=== PATIENT | female | born 1960 | race Caucasian/White ===

== ENCOUNTER 2023-05-10 20:20 | Emergency (ER) | payer OTHER ==
[~2023-05-10] VITALS: Ht 154.9 cm; Wt 84.1 kg
[2023-05-10 21:34] LABS: Basophils # (auto) 0.1 10 ^3/uL (0-0.2); Basophils % (auto) 1.1 % (0.0-2.0); Eosinophils # (auto) 0.2 10 ^3/uL (0-0.8); Eosinophils % (auto) 2.9 % (0.0-7.0); Hematocrit 43.2 % (36.0-46.0); Hemoglobin 14.5 g/dL (12.2-16.2); Lymphocytes # (auto) 2.8 10 ^3/uL (0.4-5.4); Lymphocytes % (auto) 37.3 % (10.0-50.0); Mean Corpuscular Hemoglobin 29.1 pg (28.0-32.0); Mean Corpuscular Hgb Conc. 33.7 g/dL (32.0-36.0); Mean Corpuscular Volume 86.5 fL (80.0-100.0); Monocytes # (auto) 0.5 10 ^3/uL (0-1.3); Monocytes % (auto) 7.1 % (0.0-12.0); Neutrophils # (auto) 3.8 10 ^3/uL (1.6-8.6); Neutrophils % (auto) 51.6 % (37.0-80.0); Red Blood Cells 4.99 10^6/uL (4.0-5.20); Red Cell Distribution Width 13.6 % (11.8-14.3); White Blood Cell 7.4 10^3/uL (4.4-10.8)
[2023-05-10 21:50] LABS: Alanine Aminotransferase 17 U/L (7-40); Albumin 4.3 g/dL (3.2-4.8); Alkaline Phosphatase 114 U/L (46-116); Anion Gap 8.6 (5-15); Aspartate Aminotransferase 19 U/L (13-40); BUN/Creatinine Ratio 8.3 (10.0-20.0); Blood Urea Nitrogen 9 mg/dL (9-23); Calcium 9.2 mg/dL (8.5-10.1); Carbon Dioxide 22.4 mmol/L (20-30); Chloride 110 mmol/L (98-107); Glucose 97 mg/dL (74-106); Potassium 3.9 mmol/L (3.5-5.1); Sodium 141 mmol/L (136-145)
[2023-05-10 21:51] LABS: Bilirubin, Total 0.2 mg/dL (0.2-1.0); Total Protein 7.1 g/dL (5.7-8.2)
[2023-05-10] MEDS ORDERED: ONDANSETRON ODT 4 MG TAB PO ONE (23:15)
[2023-05-10] MEDS ORDERED: METHOCARBAMOL 500 MG TAB PO ONE (23:15)
[2023-05-10] MEDS ORDERED: HYDROcodone-ACET 10/325MG TAB PO ONE (23:15)
[2023-05-11 01:12] LABS: Urine Bacteria FEW /hpf (None Seen); Urine Blood Negative /uL (Negative); Urine Clarity Clear (Clear); Urine Color Colorless (Yellow); Urine Protein, UAD Negative (Negative); Urine Specific Gravity 1.014 (1.001-1.035); Urine Urobilinogen Normal (Negative); Urine WBC 50 /hpf (0 - 5); Urine pH 6.5 (5.0-8.0)
[2023-05-11] MEDS ORDERED: MORPHINE SULFATE 4 MG/ML SYR/VIAL IM ONE (03:45)
[2023-05-11 04:43] VITALS: TEMP 97.8; O2SAT 97
[2023-05-11 05:19] VITALS: BP 117/65; PULSE 60; RESP 19
[2023-05-11] MEDS ORDERED: CIPROFLOXACIN HCL 500 MG TAB PO ONE (05:30)
[2023-05-11] MEDS ORDERED: KETOROLAC TROMETH 60MG/2ML VIAL IM ONE (05:30)
[2023-05-11] MEDS ORDERED: metroNIDAZOLE 500 MG TAB PO ONE (05:30)
[2023-05-11] MEDS ORDERED: METR-344 PO (06:39)
[2023-05-11] MEDS ORDERED: CIPR-173 PO (06:39)
== END 2023-05-11 06:49 | disposition home or self-care (01) ==
LOC: ER 20:20
DX: K52.9 Noninfective gastroenteritis and colitis, unspecified (principal); N39.0 Urinary tract infection, site not specified; R10.9 Unspecified abdominal pain; Z88.8 Allergy status to other drugs, medicaments and biological substances
CPT/HCPCS: 36415; 74176; 80053; 81001; 85025; 96372; 99285; J1885; J2270; Q0162

== ENCOUNTER 2025-07-16 07:01 | Outpatient (CLI) | payer MEDICAID ==
[~2025-07-16] VITALS: Ht 157.5 cm; Wt 86.2 kg
[~2025-07-16 07:01] MED LIST: CIPR-173 PO; METR-344 PO
[2025-07-16] MEDS: REGADENOSON 0.4 MG/5 ML SYRG IV ONE ×2 (07:53→08:52)
--- NOTE | 2025-07-19 08:29 | DVHSR ---
APPROVED REPORT Exam: Nuclear Stress Test BMI: 0 Stress Test Details Stress Test: Pharmacologic stress testing performed using 0.4 mg of regadenoson per 5 mL given IV over 10 seconds. HR Resting HR: 54 bpm Max Heart Rate (APMHR): 156.162789 bpm Max HR Achieved: 83 bpm Target HR (85% APMHR): 132.581074 bpm % of APMHR: 53.21 Recovery HR: 66 bpm BP Resting BP: 142/85 mmHg Recovery BP: 144/84 mmHg ECG Resting ECG: Sinus Bradycardia Clinical Reason for Termination: Completed protocol Nurse Comments Received patient from Nuclear Medicine. Patient is A&O x4. For VS please refer back to stress test assessment documentation. Patient is connected to phototypesetter operator. See Cardio- Neuro procedural notes for additional details. PIV flushes well. Reviewed POC and patient verbalizes understanding and consents to test. Lexiscan 0.4mg/5ml given. Stress test performed per protocol. radioisotope technician administered the Cardiolite, following Lexiscan injection. Patient tolerated well and vitals returned to baseline. Transferred back to Nuclear Medicine via wheelchair with tech in stable condition. Stress ECG Conclusion lvef 68% no severe ischemia noted NM EXAM: Myocardial Perfusion REST/STRESS Imaging Protocol: Rest Tc-99m/Stress Tc-99m 1 day Resting Data Rest SPECT myocardial perfusion imaging was performed in supine position 45 minutes following the intravenous injection of 10.1 mCi of Tc-99m Sestamibi. Time of rest injection: 07:45 Date: 07/16/2025 Time of rest imagin:30 Date: 07/16/2025 Administration Route: IV Administration Site: Right Hand Pharmacologic Stress Pharmacologic stress test was performed by injecting Regadenoson 0.4 mg IV push followed by the intravenous injection of 32.3 mCi of Tc-99m Sestamibi. Time of stress injection: 08:35 Date: 07/16/2025 Time of stress imagin:35 Date: 07/16/2025 Administration Route: IV Administration Site: Right Hand Gated Stress SPECT was performed 60 minutes after stress injection. The images were gated to evaluate regional wall motion and calculate left ventricular ejection fraction. Stress only was performed in the Supine position. Nuclear Conclusion Nuclear Findings: negative for ischemia lvef 68% no severe ischemia noted
== END 2025-07-16 17:00 | disposition home or self-care (01) ==
LOC: XYW 07:01
PROVIDERS: ATTEND Internal Medicine
DX: R00.1 Bradycardia, unspecified (principal); R07.9 Chest pain, unspecified
CPT/HCPCS: 78452; 93017; A9500; J2785